=== PATIENT | male | born 1970 | race Caucasian/White ===

== ENCOUNTER 2018-12-14 19:44 | Emergency (ER) | payer OTHER ==
[~2018-12-14] VITALS: Ht 175.3 cm; Wt 83.9 kg
[~2018-12-14 19:44] MED LIST: HYDROCODONE-AP1 EAC6 PO; IBUPROFEN 800800 M1 PO; NORCO 5-325 TA1 EACH PO; RESTORIL15 MG PO
[2018-12-14] MEDS ORDERED: PERCOCET 10-321 EACH (19:54)
[2018-12-14] MEDS ORDERED: BLOOD PRESSURE (19:56)
[2018-12-14 20:24] LABS: URINE BILIRUBIN NEGATIVE (Negative); URINE BLOOD NEGATIVE (Negative); URINE CLARITY CLEAR; URINE COLOR YELLOW; URINE GLUCOSE-RANDOM NEGATIVE (Negative); URINE KETONES NEGATIVE (Negative); URINE LEUKOCYTES-REFLEX NEGATIVE (Negative); URINE NITRITE-REFLEX NEGATIVE (Negative); URINE PROTEIN NEGATIVE (Negative); URINE SPECIFIC GRAVITY <= 1.005 (1.005-1.030); URINE UROBILINOGEN 0.2 E.U./dl (0.2-1.0)
[2018-12-14 20:32] LABS: AMP/METHAMP Negative (Negative); BARBITURATES Negative (Negative); BENZODIAZEPINES Negative (Negative); COCAINE Negative (Negative); METHADONE Negative (Negative); OPIATES Negative (Negative); PCP Negative (Negative); THC Negative (Negative)
[2018-12-14 20:37] LABS: ABSOLUTE BASOPHILS 0.2 thou/uL (0.0-0.2); ABSOLUTE EOSINOPHILS 0.4 thou/uL (0.0-0.7); ABSOLUTE LYMPHOCYTES 4.9 thou/uL (0.8-5.3); ABSOLUTE NEUTROPHILS 9.8 thou/uL (1.6-8.1); BASOPHILS 1.2 %; EOSINOPHILS 2.3 %; HEMATOCRIT 47.3 % (42.0-52.0); HEMOGLOBIN 16.3 gm/dL (14.0-18.0); LYMPHOCYTES 30.1 %; MCH 30.1 pg (26.0-34.0); MCHC 34.4 g/dL (28.0-37.0); MCV 87.6 fL (80.0-100.0); MONOCYTES 6.1 %; MPV 7.3 fl. (7.2-11.1); NUCLEATED RBCS 0 /100WBC; PLATELET COUNT* 418 thou/uL (150-400); POLYS 60.3 %; RDW-CV 13.5 % (10.5-14.5); WBC 16.3 thou/uL (4.0-11.0)
[2018-12-14 20:47] LABS: PROTIME 9.8 Seconds (9.20-11.50)
[2018-12-14 20:55] LABS: ANION GAP 10 mmol/L (7-16); BUN 12 mg/dL (7-18); CALCIUM 8.9 mg/dL (8.5-10.1); CHLORIDE 103 mmol/L (98-107); CO2 25 mmol/L (21-32); CREATININE 1.1 mg/dL (0.6-1.3); GLUCOSE 103 mg/dL (70-99); POTASSIUM 3.9 mmol/L (3.5-5.1); SODIUM 138 mmol/L (136-145); TROPONIN-I LEVEL <0.06 ng/mL (<0.06)
[2018-12-14 20:57] LABS: ALBUMIN 3.6 g/dL (3.4-5.0); ALKALINE PHOSPHATASE 124 U/L (46-116); LIPASE 330 U/L (73-393); NT-PRO BRAIN NAT PEPTIDE 16 pg/mL (<300); SGOT 13 U/L (15-37); SGPT 33 U/L (30-65); TOTAL BILIRUBIN 0.1 mg/dL (<0.1-1.0)
[2018-12-14] MEDS ORDERED: PREDNISONE50 MG PO (21:57)
[2018-12-14] MEDS ORDERED: PROAIR HFA8.5 GM INH (21:57)
[2018-12-14] MEDS ORDERED: ZPAK PO (22:00)
[2018-12-14 22:28] VITALS: BP 143/86
--- NOTE | 2018-12-15 09:39 | EKG ---
[place] [address] ELECTROCARDIOGRAM REPORT Name: CHAN DEL ROSARIO [id number] Admission: 12/14/18 Attend Phys: Discharge: 12/14/18 Date of : 72 Report #: [id number] THIS REPORT FOR: //name// [facility] [place] Test Date: 2018-12-14 Test Time: 19:58:20 Pat Name: CHAN DEL ROSARIO Department: Room: Gender: M Supervisor Of Communications: MALCOLM : 1970 Requested By: Randa Quintero Order Number: [id number] MD: James Vallecillo Measurements Intervals [place] Rate: 112 P: 80 DC: 169 QRS: 62 QRSD: 101 T: 15 QT: 323 QTc: 441 Interpretive Statements Sinus tachycardia No previous ECG available for comparison Electronically Signed On 12-15-2018 9:38:46 ELECTRICAL ENGINEERING TECHNOLOGIST by James Vallecillo [email or web address] <ELECTRONICALLY SIGNED> By: James Vallecillo MD, [facility] 12/15/18 [id number] James Vallecillo MD, FACC /EPI
== END 2018-12-14 22:28 | disposition home or self-care (01) ==
LOC: M.ERS 19:44
PROVIDERS: Emergency Medicine
DX: J40 Bronchitis, not specified as acute or chronic (principal); I10 Essential (primary) hypertension; F17.200 Nicotine dependence, unspecified, uncomplicated; Z88.6 Allergy status to analgesic agent; Z90.49 Acquired absence of other specified parts of digestive tract

== ENCOUNTER 2019-07-02 10:11 | Emergency (ER) | payer OTHER ==
[~2019-07-02] VITALS: Ht 175.3 cm; Wt 81.7 kg
[~2019-07-02 10:11] MED LIST changes: +BLOOD PRESSURE; +PERCOCET 10-321 EACH; +PREDNISONE50 MG PO; +PROAIR HFA8.5 GM INH; +ZPAK PO
[2019-07-02] MEDS ORDERED: NEURONTIN 300300 M1 PO (10:21)
[2019-07-02] MEDS ORDERED: AZITHROMYCIN 2250 MG PO (10:58)
[2019-07-02] MEDS ORDERED: TRAMADOL 50 MG50 MG PO (10:58)
[2019-07-02] MEDS ORDERED: MEDROL DOSPAK21 TA1 PO (10:58)
[2019-07-02 11:07] VITALS: BP 150/95
== END 2019-07-02 11:08 | disposition home or self-care (01) ==
LOC: M.ERS 10:11
DX: J40 Bronchitis, not specified as acute or chronic (principal); F17.210 Nicotine dependence, cigarettes, uncomplicated; I10 Essential (primary) hypertension; Z88.6 Allergy status to analgesic agent; Z90.49 Acquired absence of other specified parts of digestive tract